=== PATIENT | female | born 1970 | race Caucasian/White ===

== ENCOUNTER 2023-01-18 17:37 | Emergency (ER) | payer MEDICARE | END 2023-01-18 19:59 | disposition home or self-care (01) | LOC: JD.ED 17:37 | DX: S00.03XA Contusion of scalp, initial encounter (principal); Z88.2 Allergy status to sulfonamides; Z79.899 Other long term (current) drug therapy; W00.0XXA Fall on same level due to ice and snow, initial encounter | CPT/HCPCS: 70450; 70450-26; 99283 ==